=== PATIENT | male | born 2000 | race Two or more races ===

== ENCOUNTER 2024-05-15 18:55 | Emergency (ER) | payer BC ==
[~2024-05-15] VITALS: Ht 190.5 cm; Wt 88.5 kg
== END 2024-05-15 23:55 | disposition home or self-care (01) ==
LOC: ER 18:56
DX: S62.608A Fracture of unspecified phalanx of other finger, initial encounter for closed fracture (principal); X58.XXXA Exposure to other specified factors, initial encounter; Y93.89 Activity, other specified; Y92.89 Other specified places as the place of occurrence of the external cause; Y99.8 Other external cause status; Z88.0 Allergy status to penicillin